=== PATIENT | female | born 1940 | race Caucasian/White ===

== ENCOUNTER → 2018-03-25 10:07 | Outpatient (CLI) | payer MEDICARE, OTHER, SELFPAY ==
--- NOTE | 2018-03-25 | DI.ECHO.S_ITS ---
[facility] +---------+ [facility] +---------+ : : [address] [place] : : : : [id number] : : : : Phone: [phone]---------+ Echocardiogram Report + + :Name: JACQUELINE VILLAR Study Date: 03/25/2018 Height: 64 in : :[facility] Exam Location: [place] Weight: 143 lb : : Gender: Female BSA: 1.7 m2 : :: 1940 Age: 78 yrs BP: 160/60 mmHg: :Reason For Study: Aortic valve stenosis : :Ordering Physician: Mey : :Pedro Luis Performed By: Zahida Page : + + Interpretation Summary The aortic valve is trileaflet. The peak aortic velocity is 2.5 m/sec. The calculated aortic valve area is 1.3 cm2. There is mild to moderate aortic stenosis. There is mild to moderate aortic regurgitation. The left ventricle is normal in size. There is moderate concentric left ventricular hypertrophy. Left ventricular systolic function is normal. The ejection fraction is estimated to be 65-70%. Assessment of diastolic parameters indicates a relaxation abnormality of the left ventricle, consistent with normal filling pressures. No other echocardiographic abnormalities seen. Since the prior exam, the is mildly worsened. No other significant changes noted. Procedure: A two-dimensional transthoracic echocardiogram with color flow and Doppler was performed. The study quality was technically adequate. Comparison is made with the echocardiogram of 10/23/2015. The patient was in normal sinus rhythm during the exam. Left Ventricle: The left ventricle is normal in size. There is moderate concentric left ventricular hypertrophy. The ejection fraction is estimated to be 65-70%. Left ventricular systolic function is normal. Assessment of diastolic parameters indicates a relaxation abnormality of the left ventricle, consistent with normal filling pressures. Right Ventricle: The right ventricle is normal in size and function. The right ventricular systolic function is normal. Atria: Both atria are moderately dilated. There is no Doppler evidence for an interatrial shunt. Mitral Valve: The mitral valve leaflets appear thickened, but open well. There is mild mitral annular calcification. There is trace mitral regurgitation. Aortic Valve: The aortic valve is trileaflet. The aortic valve is moderately calcified. Leaflet mobility is moderately reduced. The peak aortic velocity is 2.5 m/sec. The peak aortic velocity on the previous exam was 3.3 m/sec. The aortic valve mean gradient is 12.8 mmHg. The calculated aortic valve area is 1.3 cm2. There is mild to moderate aortic stenosis. There is mild to moderate aortic regurgitation. Tricuspid Valve: The tricuspid valve is normal in structure and function. There is a trace or physiologic amount of tricuspid regurgitation. Pulmonary artery pressures cannot be estimated because of the lack of a measurable TR jet velocity. Pulmonic Valve: The pulmonic valve is not well visualized. Great Vessels: The aortic root is normal size. The ascending aorta is normal in size. The pulmonary artery is not well visualized, but is probably normal size. The IVC is of normal diameter and collapses greater than 50% with a sniff. This suggests a low right atrial pressure of 3 mm Hg. Pericardium/ Pleura There is no pericardial effusion. There is no pleural effusion. MMode/2D Measurements & Calculations LVIDd: 4.3 cm LVOT diam: 2.1 cm LVIDs: 2.3 cm Ao root diam: 3.1 cm FS: 46.6 % asc Aorta Diam: 3.3 cm EPSS: 0.17 cm IVSd: 0.97 cm LVPWd: 0.79 cm LV watts. diameter/BSA (cm/m^2): 2.5 LV sys. diameter/BSA (cm/m^2): 1.4 LA A2 area: 21.7 cm2 RA long axis: 5.3 cm LA A4 area: 26.2 cm2 RA area: 20.7 cm2 LA length (vol): 6.8 cm RA vol: 68.5 ml LA vol: 71.0 ml RA : 40.4 ml/m2 LA vol index: 41.8 ml/m2 RVD1 (basal): 4.5 cm TAPSE: 3.0 cm Doppler Measurements & Calculations Ao V2 max: 251.7 cm/sec LVOT Max Akin: 91.2 cm/sec Ao V2 mean: 168.5 cm/sec LV V1 max P.3 mmHg Ao max P.3 mmHg LV V1 VTI: 24.0 cm Ao mean P.8 mmHg DAVID(I,D): 1.3 cm2 Ao V2 VTI: 61.7 cm DAVID(V,D): 1.2 cm2 sev ratio: 0.39 DAVID indexed to BSA (cm^2/m^2): 0.76 AI P1/2t: 420.2 msec AI dec slope: 276.7 cm/sec2 MV E max akin: 90.2 cm/sec PA V2 max: 104.1 cm/sec MV A max akin: 115.8 cm/sec PA V2 mean: 64.3 cm/sec MV E/A: 0.78 PA mean P.9 mmHg Med Peak E' Akin: 5.6 cm/sec PA Accel Time: 0.11 sec E/E' med: 16.2 Lat Peak E' Akin: 4.1 cm/sec E/E' lat: 21.8 E/e' average: 19.0 MV dec time: 0.20 sec MV P1/2t: 62.8 msec MV P1/2t max akin: 91.6 cm/sec MVA(P1/2t): 3.5 cm2 Reading Physician:05:19 PM
== END ==
PROVIDERS: Visit Provider Family Medicine
DX: I35.2 Nonrheumatic aortic (valve) stenosis with insufficiency (principal)
CPT/HCPCS: 93306